=== PATIENT | female | born 1990 ===

== ENCOUNTER 2023-11-08 17:21 | Outpatient (REF) | payer OTHER, SELFPAY ==
[2023-11-11 12:28] LABS: HPV mRNA E6/E7 Not Detected (Not Detected)
== END 2023-11-08 17:22 | disposition home or self-care (01) ==
LOC: HO.LNP 17:21
PROVIDERS: Visit Provider Obstetrics & Gynecology
DX: Z01.419 Encounter for gynecological examination (general) (routine) without abnormal findings (principal)
CPT/HCPCS: 87624; 88175